=== PATIENT | male | born 1970 ===

== ENCOUNTER 2017-12-27 12:00 | Outpatient (CLI) | payer OTHER ==
[~2017-12-27] VITALS: Ht 182.9 cm; Wt 78.0 kg
== END 2017-12-27 12:15 | disposition home or self-care (01) ==
LOC: OFIC 805 12:00
DX: H90.3 Sensorineural hearing loss, bilateral (principal); R42 Dizziness and giddiness

== ENCOUNTER 2018-01-23 11:11 | Outpatient (CLI) | payer OTHER ==
[~2018-01-23] VITALS: Ht 182.9 cm; Wt 78.0 kg
== END 2018-01-23 11:22 | disposition home or self-care (01) ==
LOC: OFIC 805 11:11
DX: H90.3 Sensorineural hearing loss, bilateral (principal); R42 Dizziness and giddiness

== ENCOUNTER 2018-10-23 12:40 | Outpatient (CLI) | payer OTHER ==
[~2018-10-23] VITALS: Ht 182.9 cm; Wt 78.0 kg
== END 2018-10-23 14:05 | disposition home or self-care (01) ==
LOC: OFIC 805 12:40
DX: H90.3 Sensorineural hearing loss, bilateral (principal); H81.49 Vertigo of central origin, unspecified ear; H93.11 Tinnitus, right ear